=== PATIENT | female | born 2000 | race Asian ===

== ENCOUNTER 2024-07-24 09:47 | Emergency (ER) | payer BC ==
[~2024-07-24] VITALS: Ht 157.5 cm; Wt 52.0 kg
[2024-07-24] VITALS (8 sets, daily range): BP systolic 110–145; BP diastolic 72–98
[2024-07-24] MEDS ORDERED: NAPROXEN500 MG PO (12:27)
[2024-07-24] MEDS ORDERED: PENICILLN VK500 M1 PO (12:27)
[2024-07-24] MEDS ORDERED: AUGMENTIN400 MG/5 M PO (16:10)
[2024-07-24] MEDS ORDERED: CHILD ADVI100 MG/51 PO (16:10)
== END 2024-07-24 12:40 | disposition home or self-care (01) | DRG 544 ==
LOC: ED 09:47
DX: M84.68XA Pathological fracture in other disease, other site, initial encounter for fracture (principal); K05.6 Periodontal disease, unspecified